=== PATIENT | male | born 1985 | race African-American/Black ===

== ENCOUNTER 2024-09-20 10:43 | Emergency (ER) | payer MEDICAID ==
[~2024-09-20] VITALS: Ht 170.2 cm; Wt 91.0 kg
[2024-09-20 10:50] VITALS: O2SAT 100
[2024-09-20 11:09] VITALS: BP 135/80; PULSE 102; RESP 18; TEMP 36.9; O2SAT 99
[2024-09-20] MEDS: DOXYCYCLINE HYCLATE 100MG CAPSULE PO ONE (12:38)
[2024-09-20] MEDS: CEFTRIAXONE SODIUM 1G VIAL IM ONE (12:38)
[2024-09-20 13:04] LABS: CLARITY URINE CLEAR (CLEAR); COLOR URINE YELLOW (YELLOW); GLUCOSE URINE NEGATIVE (NEGATIVE); KETONES URINE NEGATIVE (NEGATIVE); LEUKOCYTE ESTERASE URINE NEGATIVE (NEGATIVE); NITRITE URINE NEGATIVE (NEGATIVE); OCCULT BLOOD URINE NEGATIVE (NEGATIVE); PROTEIN URINE NEGATIVE (NEGATIVE); SPECIFIC GRAVITY URINE 1.009 (1.005-1.030); UROBILINOGEN URINE 0.2 E.U./dL (0.2-1.0)
== END 2024-09-20 13:17 | disposition home or self-care (01) ==
LOC: ER 10:43
DX: Z11.3 Encounter for screening for infections with a predominantly sexual mode of transmission (principal)
CPT/HCPCS: 99283; 86592; 81003; 96372; J0696